=== PATIENT | male | born 1950 | race Caucasian/White ===

== ENCOUNTER 2016-06-09 09:40 | Day surgery (SDC) | payer MEDICARE, OTHER ==
--- NOTE | 2016-06-07 15:59 | HP ---
DATE OF CLINIC: 06/02/2016 ADAMA BHTAIA : 1950 PLANNED PROCEDURE: Right Shoulder Arthroscopy with Possible Rotator Cuff Repair vs. Debridement DATE OF SURGERY: June 09, 2016 SURGEON: Isiah Trammell M.D. HISTORY OF PRESENT ILLNESS Adama Bhatia is a 66 year old male. * Medication list reviewed with patient allergy list reviewed with patient. * Tried NSAIDS. The patient 66-year-old male who is RHD who I was asked to see in consultation regarding persistent right shoulder pain. The patient is an established patient of Dr. Kline who performed a right shoulder surgery in 2013. This surgery was performed at [facility] on February 24, 2015. At that time the patient was diagnosed with a chronic retracted rotator cuff tear and a chronic partial biceps tendon tear. Dr. Kline saw patient and performed an arthroscopic rotator cuff repair, subacromial decompression, and biceps tenotomy. Since that time, the patient has been able to maintain his range of motion, however he continues to have some pain. He states that he is an avid swimmer and when he attempts to do freestyle especially with overhand strokes, he has some difficulty. He describes pain on the lateral aspect of the shoulder. At the time of surgery, Dr. Kline diagnosed the patient with some chondromalacia but no signs of instability of his cartilaginous surfaces. He did diagnose the patient with intra-articular biceps tendon and performed a biceps tenotomy. The patient states that he has spoken to Dr. Kline about his shoulder. Dr. Kline, was pessimistic about whether it is repairable however he did order a repeat MRI and I was asked to see the patient about possibly performing a revision repair. I told the patient that I share Dr. Kline's concerns about the ability to perform a repair. The patient would like to make sure that he has explored all his options and is interested in moving forward with a right shoulder arthroscopy for an evaluation and possible partial rotator cuff repair vs debridement. He reports that he has been in good health since I have last seen him. PMH: Dr. Kline told he was able to medialize this tendon especially getting the posterior part of the tendon reattached back to the footprint. He did this single row lateral repair with three 4.75 mm BioSwiveLocks. The patient states that he was improving. He has been very happy with his physical therapy with Josefina Yo at [facility] and states that he would like to consider potentially having a revision repair if possible. The patient states that it hurts him enough that he would like to consider a surgery or at least talk about his options. He asked me if he is a candidate for a reverse shoulder and I told him that I think that he is too functional or that type of operation CURRENT MEDICATION * *Supplement Miscellaneous 1 once a day beet root extract, 0 days, 0 refills * Aspirin Adult Low Dose 81 MG Tablet Delayed Release 1 once a day 0 days, 0 refills * Ativan 2 MG Tablet 1 once a day 0 days, 0 refills * Centrum Silver Ultra Mens Tablet 1 once a day 0 days, 0 refills * Echinacea 500 MG Capsule 1 once a day 0 days, 0 refills * Fish Oil 1200 MG Capsule 1 once a day Patient states 1400mg, 0 days, 0 refills * Lycopene 25 MG Tablet 1 once a day 0 days, 0 refills * Magnesium Gluconate 500 MG Tablet 1 once a day 0 days, 0 refills * Meloxicam 15 MG Tablet 1 once a day 0 days, 0 refills * Milk Thistle 300 MG Capsule 1 once a day 0 days, 0 refills * Passion Flower-Valerian 500-500 MG Capsule 1 once a day 0 days, 0 refills * Prazosin HCl 5 MG Capsule as directed 15mg daily, 0 days, 0 refills * Vitamin C 1000 MG Tablet 1 once a day 0 days, 0 refills * Vitamin D3 2000 UNIT Capsule 1 once a day 0 days, 0 refills PAST MEDICAL/SURGICAL HISTORY Reported: Shoulder Arthroscopy Left RCR 2005. Medical: Cardiac history mild issues-murmur and slight skip and history of Arthritis spine/stenosis. Surgical / Procedural: Prior surgery Right ankle rebuild 2007, replacement of a knee Right 10/[address] Griffin, Hernia repair 2010, Arthroscopy left and right-unsure what year?, Right knee scope/Debridement 09/01/15, and Tonsillectomy. PTSD. SOCIAL HISTORY Social history changed. Behavioral: No tobacco use, not a current smoker, and not chewing tobacco. Never smoked. Smoking status: Never smoker. Alcohol: Alcohol a few glasses of red wine daily. Drug Use: Drug use medical marijuana since 2011. 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 ALLERGIES * Peanuts Reaction: Shock/Unconsciousness REVIEW OF SYSTEMS Systemic: No fever and no recent weight change. Cardiovascular: No chest pain or discomfort and no palpitations. Pulmonary: No dyspnea, no cough, and no wheezing. Gastrointestinal: No nausea, no vomiting, no abdominal pain, and no diarrhea. Hematologic: No easy bleeding and no tendency for easy bleeding (no blood clots). Neurological: No motor disturbances and no sensory disturbances. Skin: No skin lesions and no rash. PHYSICAL FINDINGS * Vitals taken 06/02/2016 11:28 am BP-Sitting L 136/87 mmHg 100 - 120/60 - 80 BP Cuff Size Regular Pulse Rate-Sitting 62 bpm 50 - 100 Temp-Oral 98.8 F 96 - 101 Height 71 in 64 - 74 Weight 211 lbs 123 - 215 Body Mass Index 29.4 kg/m2 Body Surface Area 2.16 m2 Pain Level 3 General Appearance: * Well developed. * In no acute distress. Eyes: General/bilateral: Extraocular Movements: * Normal. Lungs: * Clear to auscultation. * No wheezing was heard. * No rales/crackles were heard. Cardiovascular: Heart Rate And Rhythm: * Heart rate was normal. * Heart rhythm regular. Abdomen: Palpation: * Abdominal non-tender. Neurological: * Oriented to time, place, and person. Motor: * Dominant Hand = Right Hand. The patient has good range of motion when I examine him today. The problem is that with this motion he has pain at his shoulder level. He continues to swim. PHYSICAL FINDINGS RIGHT EXTREMITY Shoulder General Appearance: well-healed incision from his previous arthroscopic repair attempt. He has no bruising, no swelling, no gross deformity AROM Forward Flexion: 160 degrees (pain located anterolaterally) ABD: 120 degrees IR: Highest posterior anatomy reached with thumb: L3 PROM Forward Flexion: 170 degrees ABD: 120 degrees ER (0): 50 degrees Strength (0-5/5) Deltoid: 5/5 Triceps: 5/5 Biceps: 5/5 EPL,Finger Flexors,Finger Extensors,Wrist Flexors, Wrist Extensors,Intrinsics,Cnc Manufacturing Engineer: 5/5 Rotator cuff Supraspinatus: 4/5 (POSITIVE empty can test) Infraspinatus: 4/5 (weakness with mild pain with resisted external rotation) Subscapularis: 5/5 (negative belly press test) Rotator Cuff Exam Neer's Sign: Negative Hawkin's Sign: POSITIVE Superior Escape: Negative Biceps Exam Bicipital Groove Tenderness: Negative Muscle Deformity ([place]): Present AC Exam AC Tenderness: Not tender AC Deformity: Negative Instability Generalized Laxity(thumb to fore-arm, hyper-extension of elbows and knees, hypermobility of multiple joints): Not present, no signs of instability present Other Medial Scapular Tenderness: Negative Trapezius Pain: Mildly tender to touch C-Spine Cervical Motion: Normal Cervical Tenderness: None Spurling's Test: Negative Motor Deficits: No Sensory Deficits: No Vascular Exam Radial Pulse: 2+ Sensation Gross sensation to light touch in the distribution of Median, Ulnar and Radial nerves present PHYSICAL FINDINGS LEFT EXTREMITY Shoulder General Appearance: Well-healed incision from a previous open RCR. He has no bruising, no swelling, no gross deformity AROM Forward Flexion: 150 degrees (more painful than the last exam) ABD: 120 degrees IR: Highest posterior anatomy reached with thumb: L3 PROM Forward Flexion: 180 degrees ABD: 120 degrees ER (0): 50 degrees Strength (0-5/5) Deltoid: 5/5 Triceps: 5/5 Biceps: 5/5 EPL,Finger Flexors,Finger Extensors,Wrist Flexors, Wrist Extensors,Intrinsics,Cnc Manufacturing Engineer: 5/5 Rotator cuff Supraspinatus: 4/5 (POSITIVE empty can test) Infraspinatus: 5/5 (no pain with resisted external rotation) Subscapularis: 5/5 (negative belly press test) Rotator Cuff Exam Neer's Sign: Negative Hawkin's Sign: Negative Superior Escape: Negative Biceps Exam Bicipital Groove Tenderness: Negative Muscle Deformity ([place]): Not present AC Exam AC Tenderness: Not tender AC Deformity: Negative Instability Generalized Laxity(thumb to fore-arm, hyper-extension of elbows and knees, hypermobility of multiple joints): Not present, no signs of instability present Other Medial Scapular Tenderness: Negative Trapezius Pain: Non-tender to touch Vascular Exam Radial Pulse: 2+ Sensation Gross sensation to light touch in the distribution of Median, Ulnar and Radial nerves present TESTS * Test: CBC NO DIFF Report Date: 06/02/2016 WBC 7.1 10*3/mL MCV 93.8 fL RBC 4.80 10*6/uL MCH 32.7 pg High MCHC 34.9 g/dL RDW 11.9 % PLATELET COUNT 169 10*3/mL HCT 45.0 % HGB 15.7 g/L * Test: BASIC METABOLIC PROFILE Report Date: 06/02/2016 BUN 13 mg/dL BUN/CREAT RATIO 14 CALCIUM 9.3 mg/dL GLUCOSE 109 mg/dL High CREATININE 0.9 mg/dL SODIUM 139 meq/L POTASSIUM 3.9 meq/L CHLORIDE 103 meq/L CARBON DIOXIDE 27 meq/L ANION GAP 13 meq/L GFR 84 IMAGING 2016: CXR: No signs of any acute cardiopulmonary abnormalities. X-rays performed on February 17, 2016 demonstrates a maintained glenohumeral joint. This looks balanced. He had a maintained acromiohumeral distance with some changes consistent with previous tear for surgery on this rotator cuff footprint. The patient continues to have an anterior hook of his acromion which I would classify as a type 3. He appears to have a stable glenohumeral joint articulation on the axillary view. MRI of the right shoulder obtained on March 02, 2016 was reviewed with the patient today. The three SwiveLock anchors are still located laterally. The rotator cuff tear is now retracted, still in the articular surface. There may be still some attachment posteriorly but he has a large full thickness tear that is retracted anteriorly to the glenoid more posteriorly it is closer to the articular footprint. On the sagittal views I still think that the patient has well maintained supraspinatus muscle belly without signs of a large amount of atrophy. I grade his Goutallier stage as stage 2-3. The patient may have an upper border subscapularis tear. ASSESSMENT Isiah Trammell MD made the following assessments * Complete tear of right rotator cuff tendon PLAN * OTHER Keflex 500 MG CAPS, as directed: one tab by mouth every 8 hours until completed after surgery, 2 days, 0 refills OxyCODONE HCl 5 MG TABS, as directed: one to two tabs by mouth every 4-6 hours as needed for pain, 7 days, 0 refills TraMADol HCl 50 MG TABS, as directed: one tab by mouth every 8 hours as needed for pain, 7 days, 0 refills Isiah Trammell MD ordered the following therapy * Arthroscopy of the shoulder with possible RCR vs. debridement -right THERAPY * Patient fall risk screen negative. * Patient eligible for fall risk assessment. * Patient received fall risk assessment. SURGICAL CONSENT We have discussed surgical options including right shoulder arthroscopy with possible rotator cuff repair vs. debridement and non-operative management. I spoke to the patient about the procedure. I told him that I could not guarantee that I could repair the rotator cuff. He understands this and is still willing to proceed. I told him to have success we would need a tension free repair. Possibly, a partial thickness tear may be a more reasonable option. We spoke about the difference in post-op recovery depending on what I find. The patient understands this and is willing to proceed and signed the consent form. The patient was counseled in detail regarding the diagnosis, treatment options available, prognosis of each treatment option and the potential risks and complications. The risks of surgery include, but are not limited to, anesthetic , neurovascular complications, pulmonary embolism, deep vein thrombosis, wound dehiscence, failure of any or all of the discussed procedures, infection of the joint or surrounding soft tissue, need for revision surgery, chronic pain, limitations in activities of daily living, inability to return to work, and loss of normal range of motion or functional use of the extremity. There is the possibility of failure over time that may require additional operative or non-operative treatment. The patient acknowledged that there are a number of perioperative risks not mentioned here and would still like to proceed. The patient is aware of and understands these risks, and wishes to proceed with the proposed surgical procedure and other procedures as indicated at the time of surgery. The patient has seen his PCP for a preoperative medical risk assessment. The preoperative instructions were reviewed with the patient and all questions were answered. CARE TEAM Dinah Crain MD Family Practice Rafael Chadwick MD Cardiovascular Disease BLP/SG
[2016-06-09] MEDS ORDERED: LACTATED RINGERS 1,000 ML ONE (09:59)
[2016-06-09] MEDS ORDERED: IV START KIT ONE (09:59)
[2016-06-09] MEDS ORDERED: CEFAZOLIN SODIUM 2 GRAM PREMIX 100 ML IV PRN (10:00)
[2016-06-09] MEDS ORDERED: ROPIVACAINE 0.5% 30 ML VIAL ONE (12:36)
[2016-06-09] MEDS ORDERED: NERVE BLOCK PROCEDURAL TRAY 1 EACH ONE (12:36)
[2016-06-09] MEDS ORDERED: FENTANYL 100 MCG/2 ML VIAL ONE (12:37)
[2016-06-09] MEDS ORDERED: MIDAZOLAM HCL 1 MG/ML 2ML VIAL ONE (12:37)
[2016-06-09] MEDS ORDERED: MIDAZOLAM HCL 5 MG/5 ML VIAL ONE (12:50)
[2016-06-09] MEDS ORDERED: FENTANYL 5 ML ONE (13:29)
[2016-06-09] MEDS ORDERED: SUCCINYLCHOLINE CHL 20 MG/ML DOSE ONE (13:44)
[2016-06-09] MEDS ORDERED: PROPOFOL 20 ML IV ONE ×8 (13:44→16:35)
[2016-06-09] MEDS ORDERED: ROCURONIUM BROMIDE 10 MG/ML DOSE IV ONE (13:44)
[2016-06-09] MEDS ORDERED: LIDOCAINE 2% (PRES FREE) 5 ML VIAL ONE (13:44)
[2016-06-09] MEDS ORDERED: ONDANSETRON 4 MG/2ML 2 ML VIAL IV PRN ×2 (14:09→17:20)
[2016-06-09] MEDS ORDERED: HYDROMORPHONE HCL 1 MG/ML SYRINGE IV PRN (14:09)
[2016-06-09] MEDS ORDERED: MEPERIDINE 25 MG/ML SYRINGE IV PRN (14:09)
[2016-06-09] MEDS ORDERED: ON-Q PUMP/ROPIVACAINE 0.2% 400 ML in PREMIX BAG 1 EACH NB PRN (14:09)
[2016-06-09] MEDS ORDERED: ATROPINE SULFATE 0.4 MG/1 ML VIAL IV PRN (14:09)
[2016-06-09] MEDS ORDERED: NALOXONE HCL 0.4 MG/ML VIAL IV PRN (14:09)
[2016-06-09] MEDS ORDERED: FENTANYL 100 MCG/2 ML VIAL IV PRN (14:09)
[2016-06-09] MEDS ORDERED: LACTATED RINGERS 1,000 ML IV SCH ×2 (14:15→17:20)
[2016-06-09] MEDS ORDERED: DEXAMETHASONE SOD PHOS 4 MG/1 ML VIAL ONE (14:30)
--- NOTE | 2016-06-09 16:36 | PCMBPN ---
Brief Post Op Note: Date of Procedure: 06/09/16 Preoperative Diagnosis: 1. right shoulder recurrent rotator cuff tear Postoperative Diagnosis: 1. [Same] Procedure: right shoulder arthroscopic revision rotator cuff repair and extensive debridement Surgeon: Isiah Trammell MD Assist:Aki PERALTA Anesthesia: GETA, right intrascalene nerve block and catheter for post-op pain control Findings: as expected, pt had previous sutures removed before a repair was performed with two side to side sutures, a triple loaded 4.5mm healix BR mitek anchor and a 4.75mm swivelok anchor Condition: extubated, stable vitals, transferred to pacu Complications: None IV Fluids: 1100 mLs of LR Urine Output: 0 mLs Estimated Blood Loss: 20 mLs Tourniquet Time: [N/A] Specimens: [N/A] Implants: see above Drains: [N/A] PLAN: NWB On the RUE. SLing at all times. Oxycodone for pain control and Keflex for luisito-op prescriptions.
[2016-06-09] MEDS ORDERED: ON-Q PUMP/ROPIVACAINE 0.2% 450 ML ONE (16:43)
[2016-06-09] MEDS ORDERED: MORPHINE SULFATE 2 MG/ML SYRINGE IV PRN (17:20)
[2016-06-09] MEDS ORDERED: DIPHENHYDRAMINE HCL 50 MG/1 ML VIAL IV PRN (17:20)
[2016-06-09] MEDS ORDERED: ACETAMINOPHEN 325 MG TABLET PO PRN (17:20)
[2016-06-09] MEDS ORDERED: OXYCODONE HCL 5 MG TABLET PO PRN (17:20)
[2016-06-09] MEDS ORDERED: HYDROXYZINE PAMOATE 25 MG CAPSULE PO PRN (17:55)
--- NOTE | 2016-06-10 10:00 | OP ---
Adama BEGUM : 1950 [id number] DATE OF PROCEDURE: June 09, 2016 PREOPERATIVE DIAGNOSIS: Right shoulder recurrent rotator cuff tear. POSTOPERATIVE DIAGNOSIS: Right shoulder recurrent rotator cuff tear. PROCEDURE: RIGHT SHOULDER ARTHROSCOPIC REVISION ROTATOR CUFF REPAIR AND EXTENSIVE DEBRIDEMENT AND REMOVAL OF FOREIGN BODIES. SURGEON: Isiah Trammell M.D. BOG WORKER: Gretchen Prabhakar ANESTHESIA: General along with a right interscalene nerve block and catheter for postoperative pain control. FINDINGS: As expected, the patient had previous sutures and some pieces of previous anchor removed. I then was able to perform a repair of this L-shaped large tear. They first had to perform some releases for the tendon. I performed a side to side repair with two sutures. I then placed a triple loaded 4.5 mm BioSwiveLock anchor and place these three sutures through the posterior cuff anteriorly I placed a 4.75 mm BioSwiveLock anchor. CONDITION: The patient was extubated with stable vital signs and transferred to the PACU. COMPLICATIONS: None. INTRAVENOUS FLUIDS: 1100 mL of Lactated Ringer's. URINE OUTPUT: 0 mL ESTIMATED BLOOD LOSS: 20 mL SPECIMENS: N/A TOURNIQUET TIME: N/A IMPLANTS: See above. DRAINS: N/A PLAN: The patient will be nonweightbearing on the right upper extremity in a sling at all times. Oxycodone for pain control and Keflex for perioperative antibiotics. INDICATIONS: The patient is a 66-year-old male who is an established patient of Dr. Kline's who had surgery almost 2 years ago on February 24, [address] Kline performed and arthroscopic rotator cuff repair and biceps tenotomy. The patient unfortunately had persistent pain in his shoulder and I was asked to see the patient in follow up. The patient states that he can raise his arm above his head, however he is having some weakness as well as anterior lateral pain. A follow-up MRI demonstrated a recurrent tear. He and I spoke about the risks as well as benefits of nonoperative and surgical treatment. Because of his high activity level and the fact that he had little signs of atrophy I told him that it may be worth revisiting his rotator cuff tear to perform a repair. I spoke to him about the main risk for the surgery which happens to be stiffness and shoulder or recurrent tear. I told him that I could not guarantee that this will heal. He states that he understands this and was willing to proceed. Prior to the surgery the patient had a number of requests especially for his anesthetic care since, he was very happy how this was performed at the next appointment. I spoke to him about other complications such as injury to surrounding nerves and blood vessels, infection, stiffness of the shoulder, re-tear of the tendon, other possible problems. After a lengthy description of these problems and others the patient decided to proceed with surgery. PROCEDURE DESCRIPTION: The patient was seen in the preoperative area. The right arm was signed with the word "Yes" and my initials. I updated and signed the H&P and confirmed with the patient that the consent form matched our proposed procedure. The patient was seen by the anesthesia team who reviewed with the patient about the risks and benefits of right interscalene block and catheter. The patient agreed to have it placed under ultrasound guidance. It was placed without difficulty. The patient was transferred from the preoperative area to the operating theater where they were transferred from the stretcher to the operating room bed. Patient had intraoperative SCD's placed for DVT prophylaxis. The patient had a safety belt placed and then the patient was put to sleep without any problems. The patient was then placed in the left lateral decubitus position making sure an axillary roll was placed and all bony prominences were well-padded. The patient was rotated so that their back was approximately 30 degrees tilted posterior and the bed was turned 90 degrees in the room. The patient was then prepped and draped in sterile fashion first with a Betadine scrub, paint and then chlorhexidine. The patient was then placed in balanced suspension with their arm in the Arthrex STAR sleeve. At this point we performed a final time out confirming that the right side was the correct side, everyone in the room confirmed that the procedure matched the consent form and that xrays and MRI images were on the imaging board. We confirmed that Ancef, 2 gram had been given to the patient approximately 30 minutes prior to the final time out. At this time a spinal needle was used with 30 mL with normal saline to insufflate the joint through the posterior portal. Once the shoulder was insufflated a #15 blade was used to incise the skin by the posterior portal and the scope trocar was placed without incident. At this point the patient's anterior portal was made using a spinal needle from an outside-in technique first using a spinal needle to identify the position in the rotator interval followed by an incision with another #15 blade, placement of a switching stick and a 7mm cannula. Once this was in place a 15-point exam was performed using an arthroscopic probe viewing from posterior to anterior and anterior to posterior. Upon entering the glenohumeral joint the patient had an intact subscapularis, but a large tear of both the supraspinatus and infraspinatus. The patient had a previously placed suture hanging down from the tendon. I placed a second cannula laterally and proceeded to debride this from the undersurface. I then placed a traction suture and released the cuff from the undersurface. I then moved my scope to the bursal surface of the rotator cuff and performed a biter, used the suture cutter shaver to free up the sutures that were previously placed and removed these. I then inspected the rotator cuff footprint. There were some small pieces of anchor floating in this area. These were debrided. I attempted to avoid the previously placed holes so that I would have good purchase. My plan was to attempt to medialized the tendon. After my footprint debridement was completed I used an arthroscopic bur to debride this. I then placed some sutures seeing how the tendon would respond with tension. I performed some additional releases and after my extensive debridement was completed I was satisfied that I could perform a repair. There were two main leaflets of this L-shaped tear. I elected to place two FiberWire sutures against the foot of this leaflet and tied these arthroscopically. I then placed a medialized 4.5 mm Healix anchor through an acromial incision. This triple loaded anchor was then passed through the posterior cuff and tied down. Finally, I thought that the two leaflets could be brought together nicely with the placement of a FiberTape. I passed these with a ScGitHubion suture passer device and put these down more anterior laterally with a 4.75 mm SwiveLock anchor. At the end of the case I was happy with the appearance of my repair. I obtained final photos and was ready to complete the surgery. I then irrigated the wound closing the skin with interrupted 4-0 Nylon sutures. Then the dressings were placed including Xeroform, 4x4, ABD along with a cryo-cuff and the patient's arm was placed in a sling. All needle and sponge counts were correct. The patient was awoken without difficulty, taken to the recovery room where the patient had good pain control. We will plan on having the patient use this the sling for approximately 6 weeks after surgery. After surgery he requested a prescription for Vistaril in addition to the oxycodone and his postoperative antibiotics. I felt that this was reasonable I wrote a prescription. I attempted to answer all the questions postoperatively. We will plan to have the patient follow up with me in a week for a range of motion check. I attempted to answer all of his questions today. Job [id number] CC: Dian Mooney
== END 2016-06-09 18:47 | disposition home or self-care (01) ==
LOC: SDC 09:40
PROVIDERS: ATTEND Orthopaedic Surgery
DX: M75.121 Complete rotator cuff tear or rupture of right shoulder, not specified as traumatic (principal); Z79.82 Long term (current) use of aspirin
CPT/HCPCS: 29827; J3010 ×2; J1100; J2795 ×3; A9270 ×2; J2250 ×2; J2405; J7120; A4306